=== PATIENT | male | born 1975 | race Two or more races ===

== ENCOUNTER 2017-08-30 03:33 | Emergency (ER) | payer SELFPAY ==
[~2017-08-30] VITALS: Ht 172.7 cm; Wt 77.3 kg
[2017-08-30 03:39] VITALS: BP 159/106
== END 2017-08-30 04:50 | disposition left against medical advice (07) ==
LOC: ER 03:33
DX: Z53.21 Procedure and treatment not carried out due to patient leaving prior to being seen by health care provider (principal)